=== PATIENT | male | born 1960 | race Caucasian/White ===

== ENCOUNTER 2022-02-03 06:38 | Emergency (ER) | payer BC, SELFPAY ==
[2022-02-03] VITALS (11 sets, daily range): BP systolic 122–136; BP diastolic 63–86; PULSE 56–78; RESP 16–18; TEMP 36.3–36.4; O2SAT 94–96; BMI 37.3
--- NOTE | 2022-02-03 06:58 | ED.GENADULT ---
HPI - General Adult General Chief complaint: Nausea/Vomiting <Waldo Singh MD - Last Filed: 02/03/22 07:57> Stated complaint: Dizzines/weakness/unable to get blood pressure <Waldo Singh MD - Last Filed: 02/03/22 07:57> Time Seen by Provider: 02/03/22 06:51 <Waldo Singh MD - Last Filed: 02/03/22 07:57> History of Present Illness HPI narrative: Pt is a reasonably healthy gentleman who went to be feeling well but woke up approximately 2 hours ago with the abrupt onset of nausea and vomiting. Pt felt very lightheaded but did not pass out. Pt's vomiting has been nonbloody. He describes no chest pain, sob or diarrhea. No abd pain. Pt has had no travel or sick contacts recently. Pt has no headache, stiff neck or other neurological symptoms. <Waldo Singh MD - Last Filed: 02/03/22 07:57> Related Data Home medications: Home Medications Medication Instructions Recorded Confirmed meloxicam 15 mg tablet mg 02/03/22 Previous Rx's Medication Instructions Recorded lorazepam 0.5 mg tablet 0.5 mg PO TID PRN vertigo #14 tabs 02/03/22 <Waldo Singh MD - Last Filed: 02/03/22 07:57> Allergies/adverse reactions: Allergies Allergy/AdvReac Type Severity Reaction Status Date / Time No Known Drug Allergies Allergy Verified 02/03/22 06:57 <Waldo Singh MD - Last Filed: 02/03/22 07:57> Review of Systems Status of ROS: Reports: 10 or more systems reviewed and unremarkable except as noted in History and below <Waldo Singh MD - Last Filed: 02/03/22 07:57> [facility] Medical History: Medical History Chronic neck pain <Waldo Singh MD - Last Filed: 02/03/22 07:57> Social History: Social History Smoking Status: Never smoker Do you use any of these nicotine containing products: Smokeless Tobacco Second hand tobacco smoke exposure: No How often do you have a drink containing alcohol: 2-4 times a month How many standard drinks containing alcohol do you have on a typical day: 1 or 2 How often do you have six or more drinks on one occasion: Never AUDIT-C Alcohol total score: 2 Non-prescribed substance use: denies use service: No <Waldo Singh MD - Last Filed: 02/03/22 07:57> Exam Narrative: Exam Narrative: EXAM GENERAL: Patient appears uncomfortable and wretching. EYES: No scleral icterus. ENT: Tympanic membranes and oropharynx normal. THYROID: no thyroid nodules or thyromegaly. LYMPH: No supraclavicular or cervical lymphadenopathy. SKIN: Visible skin seen during exam normal or with benign process only. EXT: No dependent lower extremity pedal edema. HEART: Regular rate and rhythm with no murmurs, rubs, or gallops. LUNGS: Clear to auscultation bilaterally with no crackles or wheezes. ABD: Soft, non tender, non distended. PSYCH: Good eye contact, speech is not pressured. <Waldo Singh MD - Last Filed: 02/03/22 07:57> Const: Vital Signs, click to edit/add: Vital Signs - 24 hr 02/03/22 06:53 02/03/22 07:30 02/03/22 08:00 Temperature 97.6 F Pulse Rate Pulse Rate [Right Pulse Oximeter] 78 57 L 58 L Respiratory Rate 18 18 16 Blood Pressure Blood Pressure [Le ft Upper Arm] 128/72 136/86 Pulse Oximetry 96 95 94 Oxygen Delivery Me thod Room Air Room Air Room Air 02/03/22 08:30 02/03/22 09:00 02/03/22 09:30 Temperature Pulse Rate Pulse Rate [Right Pulse Oximeter] 56 L 59 L 72 Respiratory Rate 18 Blood Pressure Blood Pressure [Le ft Upper Arm] 125/76 125/70 123/70 Pulse Oximetry 94 95 94 Oxygen Delivery Me thod Room Air Room Air 02/03/22 10:00 02/03/22 10:14 02/03/22 10:30 Temperature Pulse Rate 70 60 Pulse Rate [Right Pulse Oximeter] 65 Respiratory Rate Blood Pressure Blood Pressure [Le ft Upper Arm] 128/80 Pulse Oximetry 94 96 95 Oxygen Delivery Me thod Room Air 02/03/22 10:31 Temperature Pulse Rate 69 Pulse Rate [Right Pulse Oximeter] Respiratory Rate Blood Pressure 131/77 Blood Pressure [Le ft Upper Arm] Pulse Oximetry 94 Oxygen Delivery Me thod <Waldo Singh MD - Last Filed: 02/03/22 07:57> Vital Signs, click to edit/add: Vital Signs - 24 hr 02/03/22 06:53 02/03/22 07:30 02/03/22 08:00 Temperature 97.6 F Pulse Rate Pulse Rate [Right Pulse Oximeter] 78 57 L 58 L Respiratory Rate 18 18 16 Blood Pressure Blood Pressure [Le ft Upper Arm] 128/72 136/86 Pulse Oximetry 96 95 94 Oxygen Delivery Me thod Room Air Room Air Room Air 02/03/22 08:30 02/03/22 09:00 02/03/22 09:30 Temperature Pulse Rate Pulse Rate [Right Pulse Oximeter] 56 L 59 L 72 Respiratory Rate 18 Blood Pressure Blood Pressure [Le ft Upper Arm] 125/76 125/70 123/70 Pulse Oximetry 94 95 94 Oxygen Delivery Me thod Room Air Room Air 02/03/22 10:00 02/03/22 10:14 02/03/22 10:30 Temperature Pulse Rate 70 60 Pulse Rate [Right Pulse Oximeter] 65 Respiratory Rate Blood Pressure Blood Pressure [Le ft Upper Arm] 128/80 Pulse Oximetry 94 96 95 Oxygen Delivery Me thod Room Air 02/03/22 10:31 Temperature Pulse Rate 69 Pulse Rate [Right Pulse Oximeter] Respiratory Rate Blood Pressure 131/77 Blood Pressure [Le ft Upper Arm] Pulse Oximetry 94 Oxygen Delivery Me thod <Dalton Gibbons MD - Last Filed: 02/03/22 13:28> Course Course Hospital Course: CBC, CMP, Amylase, Tropoinin, D dimer, EKG requested. Saline lock placed. Normal saline 1 liter and Zofran 4 mg given. <Waldo Singh MD - Last Filed: 02/03/22 07:57> Reevaluation(s) Reevaluation #1: Receive signed over from outgoing ER physician, I went in and saw the patient, cranial nerves 3-12 are normal clot, he clearly has nystagmus left greater than right, couple beats, is TMs are normal, he is able to whistle for me, neurologically intact in his upper lower extremities, with normal power, coordination, and symmetrical bilaterally, slight headache is noted, although he is has a hard time differentiating whether this is from his chronic neck issues, We will try little bit of lorazepam, along with a head CT, <Dalton Gibbons MD - Last Filed: 02/03/22 13:28> Time: 08:48 <Dalton Gibbons MD - Last Filed: 02/03/22 13:28> Reevaluation #2: Patient was able to walk around the emergency room with no problems, he felt a little bit of dizziness, but was figuring out that if he turned his head to the left, the dizziness would go way. I reviewed with him the MRI report, the did not show any acute abnormalities, no evidence of stroke or other issue. I do believe this is secondary to benign positional vertigo, the Ativan did help him, small prescription would be helpful we went over the risks benefits and side effects of this, he should be off work for the next 48 hours, as he works for [employer]. Follow-up with primary care, might need a referral to physical therapy for treatment of vestibular dysfunction techniques <Dalton Gibbons MD - Last Filed: 02/03/22 13:28> Time: 13:27 <Dalton Gibbons MD - Last Filed: 02/03/22 13:28> Vital Signs Vital signs: Initial Vital Signs Temperature 97.6 F 02/03/22 06:53 Temperature Source Temporal Artery Scan 02/03/22 06:53 Pulse Rate 78 02/03/22 06:53 Respiratory Rate 18 02/03/22 06:53 Pulse Oximetry 96 02/03/22 06:53 Oxygen Delivery Method 02/03/22 06:53 Vital Signs Temperature 97.6 F 02/03/22 06:53 Pulse Rate 78 02/03/22 06:53 Respiratory Rate 18 02/03/22 06:53 Pulse Oximetry 96 02/03/22 06:53 Oxygen Delivery Method 02/03/22 06:53 Temperature 97.6 F 02/03/22 06:53 Pulse Rate 69 02/03/22 10:31 Respiratory Rate 18 02/03/22 08:30 Blood Pressure 131/77 02/03/22 10:31 Pulse Oximetry 94 02/03/22 10:31 Oxygen Delivery Method 02/03/22 10:00 <Waldo Singh MD - Last Filed: 02/03/22 07:57> Initial Vital Signs Temperature 97.6 F 02/03/22 06:53 Temperature Source Temporal Artery Scan 02/03/22 06:53 Pulse Rate 78 02/03/22 06:53 Respiratory Rate 18 02/03/22 06:53 Pulse Oximetry 96 02/03/22 06:53 Oxygen Delivery Method 02/03/22 06:53 Vital Signs Temperature 97.6 F 02/03/22 06:53 Pulse Rate 78 02/03/22 06:53 Respiratory Rate 18 02/03/22 06:53 Pulse Oximetry 96 02/03/22 06:53 Oxygen Delivery Method 02/03/22 06:53 Temperature 97.6 F 02/03/22 06:53 Pulse Rate 69 02/03/22 10:31 Respiratory Rate 18 02/03/22 08:30 Blood Pressure 131/77 02/03/22 10:31 Pulse Oximetry 94 02/03/22 10:31 Oxygen Delivery Method 02/03/22 10:00 <Dalton Gibbons MD - Last Filed: 02/03/22 13:28> Medical Decision Making MDM Narrative Medical decision making narrative: Pt presents with acute nausea and vomiting. Labs reassuring. Pt treated with normal saline and zofran. <Waldo Singh MD - Last Filed: 02/03/22 07:57> Lab Data Labs: Lab Results 02/03/22 02/03/22 02/03/22 Range/Units 07:17 07:17 07:17 WBC 5.91 (4.50-11.00) K/uL RBC 5.44 (4.30-5.90) m/uL Hgb 16.7 (13.5-17.5) gm/dL Hct 46.8 (37.0-53.0) % MCV 86 (80-100) fL MCH 31 (26-34) pg MCHC 36 (32-36) gm/dL RDW Coeff of David 11.3 L (11.5-15.5) % Plt Count 200 (140-440) K/uL Neut % (Auto) 59.1 (42.0-72.0) % Lymph % (Auto) 29.8 (20-44) % Blanco % (Auto) 7.6 (0.0-11.0) % Eos % (Auto) 2.7 (0.0-7.0) % Baso % (Auto) 0.5 (0.0-3.0) % Neut # (Auto) 3.49 (1.7-7.0) K/uL Lymph # (Auto) 1.76 (0.90-2.90) K/uL Blanco # (Auto) 0.40 (0.00-0.90) K/UL Eos # (Auto) 0.16 (0.00-0.50) K/uL Baso # (Auto) 0.03 (0.00-0.30) K/uL Abs Immat Gran (auto) 0.02 (0.00-0.30) K/uL Imm/Tot Granulo (auto) 0.3 % D-Dimer Quant (PE/DVT) < 0.27 (0.00-0.50) ug/ml Sodium 141 (135-149) mmol/L Potassium 4.4 (3.6-5.1) mmol/L Chloride 109 (96-114) mmol/L Carbon Dioxide 24 (20-32) mmol/L BUN 15 (7-30) mg/dL Creatinine 0.8 (0.5-1.5) mg/dL Estimated Creat Clear 102.66 Estimated GFR 102 ml/min Glucose 156 H (60-115) mg/dL Calcium 9.1 (8.4-10.6) mg/dL Total Bilirubin 1.3 (0.1-1.5) mg/dL AST 25 (12-35) U/L ALT 31 (4-50) U/L Alkaline Phosphatase 62 (40-150) U/L Troponin I < 0.01 L (0.01-0.04) ng/mL Total Protein 7.2 (6.0-8.3) g/dL Albumin 4.5 (3.3-5.0) g/dL Amylase (18-89) U/L SARS-CoV-2 (PCR) (Negative) Influenza Type A (PCR) (Negative) Influenza Type B (PCR) (Negative) RSV (PCR) (Negative) 02/03/22 02/03/22 Range/Units 07:17 08:10 WBC (4.50-11.00) K/uL RBC (4.30-5.90) m/uL Hgb (13.5-17.5) gm/dL Hct (37.0-53.0) % MCV (80-100) fL MCH (26-34) pg MCHC (32-36) gm/dL RDW Coeff of David (11.5-15.5) % Plt Count (140-440) K/uL Neut % (Auto) (42.0-72.0) % Lymph % (Auto) (20-44) % Blanco % (Auto) (0.0-11.0) % Eos % (Auto) (0.0-7.0) % Baso % (Auto) (0.0-3.0) % Neut # (Auto) (1.7-7.0) K/uL Lymph # (Auto) (0.90-2.90) K/uL Blanco # (Auto) (0.00-0.90) K/UL Eos # (Auto) (0.00-0.50) K/uL Baso # (Auto) (0.00-0.30) K/uL Abs Immat Gran (auto) (0.00-0.30) K/uL Imm/Tot Granulo (auto) % D-Dimer Quant (PE/DVT) (0.00-0.50) ug/ml Sodium (135-149) mmol/L Potassium (3.6-5.1) mmol/L Chloride (96-114) mmol/L Carbon Dioxide (20-32) mmol/L BUN (7-30) mg/dL Creatinine (0.5-1.5) mg/dL Estimated Creat Clear Estimated GFR ml/min Glucose (60-115) mg/dL Calcium (8.4-10.6) mg/dL Total Bilirubin (0.1-1.5) mg/dL AST (12-35) U/L ALT (4-50) U/L Alkaline Phosphatase (40-150) U/L Troponin I (0.01-0.04) ng/mL Total Protein (6.0-8.3) g/dL Albumin (3.3-5.0) g/dL Amylase 96 H (18-89) U/L SARS-CoV-2 (PCR) Negative SARS-CoV-2 (Negative) Influenza Type A (PCR) Negative PCR FLU A (Negative) Influenza Type B (PCR) Negative PCR FLU B (Negative) RSV (PCR) Negative PCR RSV (Negative) <Waldo Singh MD - Last Filed: 02/03/22 07:57> Lab Results 02/03/22 02/03/22 02/03/22 Range/Units 07:17 07:17 07:17 WBC 5.91 (4.50-11.00) K/uL RBC 5.44 (4.30-5.90) m/uL Hgb 16.7 (13.5-17.5) gm/dL Hct 46.8 (37.0-53.0) % MCV 86 (80-100) fL MCH 31 (26-34) pg MCHC 36 (32-36) gm/dL RDW Coeff of David 11.3 L (11.5-15.5) % Plt Count 200 (140-440) K/uL Neut % (Auto) 59.1 (42.0-72.0) % Lymph % (Auto) 29.8 (20-44) % Blanco % (Auto) 7.6 (0.0-11.0) % Eos % (Auto) 2.7 (0.0-7.0) % Baso % (Auto) 0.5 (0.0-3.0) % Neut # (Auto) 3.49 (1.7-7.0) K/uL Lymph # (Auto) 1.76 (0.90-2.90) K/uL Blanco # (Auto) 0.40 (0.00-0.90) K/UL Eos # (Auto) 0.16 (0.00-0.50) K/uL Baso # (Auto) 0.03 (0.00-0.30) K/uL Abs Immat Gran (auto) 0.02 (0.00-0.30) K/uL Imm/Tot Granulo (auto) 0.3 % D-Dimer Quant (PE/DVT) < 0.27 (0.00-0.50) ug/ml Sodium 141 (135-149) mmol/L Potassium 4.4 (3.6-5.1) mmol/L Chloride 109 (96-114) mmol/L Carbon Dioxide 24 (20-32) mmol/L BUN 15 (7-30) mg/dL Creatinine 0.8 (0.5-1.5) mg/dL Estimated Creat Clear 102.66 Estimated GFR 102 ml/min Glucose 156 H (60-115) mg/dL Calcium 9.1 (8.4-10.6) mg/dL Total Bilirubin 1.3 (0.1-1.5) mg/dL AST 25 (12-35) U/L ALT 31 (4-50) U/L Alkaline Phosphatase 62 (40-150) U/L Troponin I < 0.01 L (0.01-0.04) ng/mL Total Protein 7.2 (6.0-8.3) g/dL Albumin 4.5 (3.3-5.0) g/dL Amylase (18-89) U/L SARS-CoV-2 (PCR) (Negative) Influenza Type A (PCR) (Negative) Influenza Type B (PCR) (Negative) RSV (PCR) (Negative) 02/03/22 02/03/22 Range/Units 07:17 08:10 WBC (4.50-11.00) K/uL RBC (4.30-5.90) m/uL Hgb (13.5-17.5) gm/dL Hct (37.0-53.0) % MCV (80-100) fL MCH (26-34) pg MCHC (32-36) gm/dL RDW Coeff of David (11.5-15.5) % Plt Count (140-440) K/uL Neut % (Auto) (42.0-72.0) % Lymph % (Auto) (20-44) % Blanco % (Auto) (0.0-11.0) % Eos % (Auto) (0.0-7.0) % Baso % (Auto) (0.0-3.0) % Neut # (Auto) (1.7-7.0) K/uL Lymph # (Auto) (0.90-2.90) K/uL Blanco # (Auto) (0.00-0.90) K/UL Eos # (Auto) (0.00-0.50) K/uL Baso # (Auto) (0.00-0.30) K/uL Abs Immat Gran (auto) (0.00-0.30) K/uL Imm/Tot Granulo (auto) % D-Dimer Quant (PE/DVT) (0.00-0.50) ug/ml Sodium (135-149) mmol/L Potassium (3.6-5.1) mmol/L Chloride (96-114) mmol/L Carbon Dioxide (20-32) mmol/L BUN (7-30) mg/dL Creatinine (0.5-1.5) mg/dL Estimated Creat Clear Estimated GFR ml/min Glucose (60-115) mg/dL Calcium (8.4-10.6) mg/dL Total Bilirubin (0.1-1.5) mg/dL AST (12-35) U/L ALT (4-50) U/L Alkaline Phosphatase (40-150) U/L Troponin I (0.01-0.04) ng/mL Total Protein (6.0-8.3) g/dL Albumin (3.3-5.0) g/dL Amylase 96 H (18-89) U/L SARS-CoV-2 (PCR) Negative SARS-CoV-2 (Negative) Influenza Type A (PCR) Negative PCR FLU A (Negative) Influenza Type B (PCR) Negative PCR FLU B (Negative) RSV (PCR) Negative PCR RSV (Negative) <Dalton Gibbons MD - Last Filed: 02/03/22 13:28> ECG Data Attestation: I personally reviewed and interpreted this ECG as follows: <Dalton Gibbons MD - Last Filed: 02/03/22 13:28> Interpretation: EKG shows normal sinus rhythm with a ventricular rate of 62, no acute ST wave changes, Q-waves noted inferiorly, and laterally, Assessment, nonacute EKG <Dalton Gibbons MD - Last Filed: 02/03/22 13:28> Discharge Plan Discharge Clinical Impression: Benign paroxysmal positional vertigo, Vertigo <Waldo Singh MD - Last Filed: 02/03/22 07:57> Patient Disposition: Home w/ Parent or Adult <Waldo Singh MD - Last Filed: 02/03/22 07:57> Condition: Improved <Waldo Singh MD - Last Filed: 02/03/22 07:57> Instructions: Vertigo (DC), Benign Paroxysmal Positional Vertigo (ED) <Waldo Singh MD - Last Filed: 02/03/22 07:57> Additional Instructions: Home rest off work for the next 48 hours, follow-up with primary care consideration of going to physical therapy to learn the maneuvers to move the otoliths around in your ears. Medication given lorazepam, do not drive, drink alcohol with this, follow-up <Waldo Singh MD - Last Filed: 02/03/22 07:57> Prescriptions: New lorazepam 0.5 mg tablet 0.5 mg PO TID PRN (Reason: vertigo) Qty: 14 0RF No Action meloxicam 15 mg tablet <Waldo Singh MD - Last Filed: 02/03/22 07:57> Stand Alone Forms: [facility] Info Instructions <Waldo Singh MD - Last Filed: 02/03/22 07:57>
[2022-02-03] MEDS: 0.9 % SODIUM CHLORIDE 1000 ml 1,000 ML IV ×2 (07:23→08:18)
[2022-02-03] MEDS: ONDANSETRON 2 MG/ML inj 4 MG IVP (07:23)
[2022-02-03 07:33] LABS: Basophils Absolute Auto 0.03 K/uL (0.00-0.30); Basophils Percent Auto 0.5 % (0.0-3.0); Eosinophils Absolute Auto 0.16 K/uL (0.00-0.50); Eosinophils Percent Auto 2.7 % (0.0-7.0); Hematocrit 46.8 % (37.0-53.0); Hemoglobin* 16.7 gm/dL (13.5-17.5); Immature Granulocytes Abs Auto 0.02 K/uL (0.00-0.30); Immature Granulocytes Pct Auto 0.3 %; Lymphocytes Absolute Auto 1.76 K/uL (0.90-2.90); Lymphocytes Percent Auto 29.8 % (20-44); Mean Corpuscular HGB Conc 36 gm/dL (32-36); Mean Corpuscular Hemoglobin 31 pg (26-34); Mean Corpuscular Volume 86 fL (80-100); Monocytes Percent Auto 7.6 % (0.0-11.0); Neutrophils Absolute Auto 3.49 K/uL (1.7-7.0); Neutrophils Percent Auto 59.1 % (42.0-72.0); Platelet Count* 200 K/uL (140-440); RDW Coefficient of Variation % 11.3 % (11.5-15.5); Red Blood Count 5.44 m/uL (4.30-5.90); White Blood Count* 5.91 K/uL (4.50-11.00)
[2022-02-03 07:40] LABS: Slide Review Reflex No
[2022-02-03 07:47] LABS: Albumin* 4.5 g/dL (3.3-5.0); Chloride* 109 mmol/L (96-114); Potassium* 4.4 mmol/L (3.6-5.1); Sodium* 141 mmol/L (135-149)
[2022-02-03 07:49] LABS: Bilirubin Total* 1.3 mg/dL (0.1-1.5); Creatinine* 0.8 mg/dL (0.5-1.5); Est. Creatinine Clearance* 102.66; Estimated Glomerular Filt Rate 102 ml/min
[2022-02-03 07:50] LABS: Alanine Aminotransferase* 31 U/L (4-50); Alkaline Phosphatase* 62 U/L (40-150); Amylase* 96 U/L (18-89); Aspartate Amino Transferase* 25 U/L (12-35); Blood Urea Nitrogen* 15 mg/dL (7-30); Carbon Dioxide* 24 mmol/L (20-32); Glucose* 156 mg/dL (60-115); Total Protein* 7.2 g/dL (6.0-8.3)
[2022-02-03 07:51] LABS: Calcium* 9.1 mg/dL (8.4-10.6)
[2022-02-03 07:52] LABS: D Dimer Quantitative* < 0.27 ug/ml (0.00-0.50)
[2022-02-03 08:05] LABS: Troponin I* < 0.01 ng/mL (0.01-0.04)
--- NOTE | 2022-02-03 08:22 | CRLHL7_ITS ---
For Patients: As a result of the Century Cures Act, medical imaging exams and procedure reports are released immediately into your electronic medical record. You may view this report before your referring provider. If you have questions, please contact your health care provider. INDICATION: DIZZINESS, VERTIGO COMPARISON: none TECHNIQUE: A CT volumetric acquisition was performed of the brain without IV contrast. Please note that all CT scans at this facility use dose modulation, iterative reconstruction, and/or weight-based dosing when appropriate to reduce radiation dose to as low as reasonably achievable. FINDINGS: The CT images reveal a normal appearance of the cerebral ventricles and basal cisterns. There is no evidence of intracranial hemorrhage, tissue infarction or mass effect. The mastoid air cells and middle ear cavities are clear. The calvarium appears intact. Mild sinus disease involving the left frontal and left ethmoid sinuses. IMPRESSION: Negative head CT. Mild left-sided sinus disease. Please note that all CT scans at this facility use dose modulation, iterative reconstruction, and/or weight-based dosing when appropriate to reduce radiation dose to as low as reasonably achievable. Dictated by Corbin Keith MD @ 02/03/2022 9:08:45 AM (Electronically Signed)
[2022-02-03] MEDS: LORazepam 2 MG/ML inj 0.5 MG IVP (08:32)
[2022-02-03 08:55] LABS: PCR FLU A Negative PCR FLU A (Negative); PCR FLU B Negative PCR FLU B (Negative); PCR RSV Negative PCR RSV (Negative)
[2022-02-03 08:57] LABS: SARS PCR* Negative SARS-CoV-2 (Negative)
--- NOTE | 2022-02-03 09:45 | CRLHL7_ITS ---
For Patients: As a result of the Century Cures Act, medical imaging exams and procedure reports are released immediately into your electronic medical record. You may view this report before your referring provider. If you have questions, please contact your health care provider. INDICATION: Vertigo. Dizziness. TECHNIQUE: Sagittal T1 axial FLAIR T2 and diffusion weighted images. FINDINGS: The lateral 3rd and 4th ventricles are normal in size and shape. There is no evidence of recent ischemic infarction. There is no evidence of intracranial hemorrhage. There are no subdural fluid collections. There is no mass effect. The brainstem and cerebellum appear normal. The orbits, sella turcica and skullbase are unremarkable. There is mild mucosal thickening in the left frontal and ethmoid sinuses. Mastoid air cells are clear. IMPRESSION: No evidence of acute infarction, intracranial hemorrhage or mass. Dictated by Wood Royal MD @ 02/03/2022 11:41:46 AM (Electronically Signed)
== END 2022-02-03 13:24 | disposition home or self-care (01) ==
PROVIDERS: Internal Medicine; Emergency Provider Family Medicine
DX: H81.10 Benign paroxysmal vertigo, unspecified ear (principal)
CPT/HCPCS: 36415; 70450; 70551; 80053; 82150; 84484; 85025; 85379; 87502; 87634; 87635; 93005; 96374; 96375; 99284; 99285; J2060; J2405; J7030